=== PATIENT | male | born 1960 | race Caucasian/White ===

== ENCOUNTER 2019-03-06 16:06 | Outpatient (CLI) | payer OTHER ==
--- NOTE | 2019-03-06 16:35 | RAD ---
EXAM: Chest 2 views: HISTORY: Cough for 2 weeks COMPARISON: None. FINDINGS: There is a normal-sized cardiomediastinal silhouette. There is no evidence of consolidation, mass, or pleural effusion. The bones are unremarkable. IMPRESSION: No evidence of acute cardiopulmonary disease
== END 2019-03-06 16:07 | disposition home or self-care (01) ==
LOC: BICRAD 16:06
PROVIDERS: ATTEND Allergy & Immunology
DX: R05 Cough (principal)
CPT/HCPCS: 71046

== ENCOUNTER 2025-05-20 08:00 | Outpatient (CLI) | payer MEDICARE, OTHER ==
[2025-05-20] MEDS ORDERED: Iopamidol 370 76% 100 ML VIAL ONE (09:15)
== END 2025-05-20 08:01 | disposition home or self-care (01) ==
LOC: CT 08:00
PROVIDERS: ATTEND Urology
DX: R31.29 Other microscopic hematuria (principal); F17.200 Nicotine dependence, unspecified, uncomplicated; N28.89 Other specified disorders of kidney and ureter; J84.10 Pulmonary fibrosis, unspecified
CPT/HCPCS: 74178; Q9967